=== PATIENT | male | born 1975 | race Caucasian/White ===

== ENCOUNTER → 2019-08-21 12:55 | Outpatient (BNVA) | payer OTHER, SELFPAY | PROVIDERS: Family Provider Nurse Practitioner Family; PCP Emergency Medicine Emergency Medical Services; Visit Provider Urology | DX: R31.9 Hematuria, unspecified (principal); Z12.5 Encounter for screening for malignant neoplasm of prostate; R31.29 Other microscopic hematuria; Z87.442 Personal history of urinary calculi | CPT/HCPCS: 80053; 81001; 88112 ==

== ENCOUNTER 2019-10-07 09:35 | Outpatient (CLI) | payer OTHER, SELFPAY ==
--- NOTE | 2019-10-07 09:30 | CT_ITS ---
WS: [id number] CT ABDOMEN AND PELVIS WITH AND WITHOUT CONTRAST HISTORY: MICROHEMATURIA TECHNIQUE: Unenhanced 5 mm axial imaging first performed through the abdomen. Post contrast imaging t hrough the abdomen and pelvis. Oral contrast has not been provided. Sagittal and coronal reformats a re submitted. All CT scans at [facility] use at least one of these dose optimization tech niques: automated exposure control; mA and/or kV adjustment per patient size (includes targeted exams where dose is matched to clinical indication); or iterative reconstruction. CONTRAST: Omnipaque 300; 95 mL IV. DLP: 2159.87 mGy.cm COMPARISON: None available. 2 mm micronodule LEFT lower lobe. Heart size is normal. Small hiatal hernia. Liver, spleen, gallbladder, pancreas and adrenal glands are negative. No bile duct dilatation. RIGHT kidney: Normal size RIGHT kidney. No obstruction or mass. No calcifications. No filling defects along the course of the RIGHT ureter. LEFT kidney: Normal size LEFT kidney. No obstruction or mass. No calcifications. No filling defect al meenu well-distended ureter. Urinary bladder: Normal sized urinary bladder. No wall thickening or bladder stones. Prostate gland i s normal. No adenopathy, free fluid or free air. Mild fecal retention. Normal appendix. Mild anterior wedging of T9, T10 and T11. CT/CT abdomen pelvis wo/w [id number] IMPRESSION: 1. Negative CT kidneys. No renal mass or calcifications or obstruction. 2. Negative urinary bladder. Next a small hiatal hernia. 3. Mild constipation.
[2019-10-07] MEDS: iohexol 300 mg/mL 100 mL Btl IV (09:49)
== END 2019-10-07 09:36 | disposition home or self-care (01) ==
LOC: RAD 09:35
PROVIDERS: PCP Emergency Medicine Emergency Medical Services; Visit Provider Urology
DX: R31.29 Other microscopic hematuria (principal); K44.9 Diaphragmatic hernia without obstruction or gangrene; K59.00 Constipation, unspecified
CPT/HCPCS: 74178; 81001